=== PATIENT | female | born 1985 | race Caucasian/White ===

== ENCOUNTER 2020-04-27 17:08 | Emergency (ER) | payer BC, OTHER ==
[~2020-04-27] VITALS: Ht 165.1 cm; Wt 68.0 kg
[~2020-04-27 17:08] MED LIST: DOCU5LIQ PO; IBUP80TA PO; MAPA500T17 PO; MOM30SS PO; PROC2.5C TOP
[2020-04-27] MEDS ORDERED: ASPI325T57 PO (17:26)
[2020-04-27] MEDS ORDERED: MIRE1IUD IU (17:29)
--- NOTE | 2020-04-27 18:11 | REPVR ---
PROCEDURE INFORMATION: Exam: CT Head Without Contrast Exam date and time: 04/27/2020 5:54 PM Age: 34 years old Clinical indication: Weakness, extremity; Additional info: Neuro SX >2weeks TECHNIQUE: Imaging protocol: Computed tomography of the head without contrast. Radiation optimization: All CT scans at this facility use at least one of these dose optimization techniques: automated exposure control; mA and/or kV adjustment per patient size (includes targeted exams where dose is matched to clinical indication); or iterative reconstruction. COMPARISON: No relevant prior studies available. FINDINGS: Brain: No hemorrhage. Unremarkable white matter for the patient's age. No mass effect. No evolving territorial infarct. Cerebral ventricles: No ventriculomegaly. Bones/joints: Unremarkable. No acute fracture. Paranasal sinuses: Visualized sinuses are unremarkable. No fluid levels. Mastoid air cells: Visualized mastoid air cells are well aerated. Soft tissues: Unremarkable. IMPRESSION: No acute intracranial abnormality seen. Electronically signed by: Maki Mccormack On 04/27/2020 18:11:20 PM
[2020-04-27] MEDS ORDERED: diphenhydrAMINE 50MG/ML VIAL (J1200) IV STA (18:20)
[2020-04-27] MEDS ORDERED: NS 1,000 ML IV ONE (18:30)
[2020-04-27] MEDS ORDERED: KETOROLAC 30 MG/ML 1ML VIAL IV ONE (18:30)
[2020-04-27] MEDS ORDERED: METOCLOPRAMIDE INJ 10MG/2ML VIAL (J2765 PER 1) IV ONE (18:30)
[2020-04-27 19:09] LABS: BASO % 0.3 % (0.0-1.0); EOS # 0.1 10^3/uL (0.0-0.5); EOS % 1.5 % (0.0-3.0); HEMOGLOBIN 14.2 g/dl (12.0-15.5); LYMPH # 2.2 10^3/uL (1.5-5.0); LYMPH % 23.2 % (24.0-44.0); MEAN CORPUSCULAR HEMOGLOBIN 28.7 pg (27.0-33.0); MEAN CORPUSCULAR HGB CONC 31.6 g/dl (32.0-36.5); MEAN CORPUSCULAR VOLUME 91.1 fl (80.0-96.0); MONO # 0.7 10^3/uL (0.0-0.8); MONO % 7.3 % (0.0-5.0); NEUTROPHILS # 6.3 10^3/uL (1.5-8.5); NEUTROPHILS % 67.4 % (36.0-66.0); PLATELET COUNT, AUTOMATED 197 10^3/uL (150-450); RED BLOOD COUNT 4.94 10^6/uL (4.00-5.40); WHITE BLOOD COUNT 9.4 10^3/uL (4.0-10.0)
[2020-04-27 19:32] LABS: ERYTHROCYTE SEDIMENTATION RATE 1 mm/hr (0-20)
[2020-04-27 19:54] LABS: BLOOD UREA NITROGEN 12 MG/DL (7-18); CARBON DIOXIDE LEVEL 32 MEQ/L (21-32); CHLORIDE LEVEL 105 MEQ/L (98-107); GLOMERULAR FILTRATION RATE > 60.0 (>60); GLUCOSE, FASTING 82 MG/DL (70-100); MAGNESIUM LEVEL 2.4 MG/DL (1.8-2.4); POTASSIUM SERUM 4.4 MEQ/L (3.5-5.1); SODIUM LEVEL 138 MEQ/L (136-145)
[2020-04-27] MEDS ORDERED: NORTRIPTYLINE 10 MG CAP PO STA (20:49)
[2020-04-27] MEDS ORDERED: PAME10CA PO (20:54)
[2020-04-27] MEDS ORDERED: PAME25CA PO (20:54)
[2020-04-27 21:06] VITALS: BP 102/62
== END 2020-04-27 21:22 | disposition home or self-care (01) ==
LOC: M ED 17:08
DX: G43.909 Migraine, unspecified, not intractable, without status migrainosus (principal); R55 Syncope and collapse; R47.9 Unspecified speech disturbances; Z79.899 Other long term (current) drug therapy; Z79.82 Long term (current) use of aspirin; Z97.5 Presence of (intrauterine) contraceptive device; Z88.1 Allergy status to other antibiotic agents; Z88.2 Allergy status to sulfonamides; Z91.030 Bee allergy status; F17.210 Nicotine dependence, cigarettes, uncomplicated
CPT/HCPCS: 70450; 80048; 83735; 84702; 85025; 85652; 96361; 96374; 96375; 99284; J1200; J1885; J2765